=== PATIENT | female | born 1995 | race Caucasian/White ===

== ENCOUNTER 2018-03-02 15:04 | Emergency (ER) | payer OTHER, SELFPAY ==
[2018-03-02 15:05] VITALS: BP 135/66; PULSE 72; RESP 18; TEMP 36.8; O2SAT 100; BMI 20.7
--- NOTE | 2018-03-02 15:16 | ED.VISSUMM ---
- ER Visit Summary Date of Service: 03/02/18 Chief Complaint: Epigastric abdominal pain History of Present Illness: The patient is a 22 F no senior past medical 3 or prior abdominal surgeries. States this morning after eating breakfast which was cereal she started having epigastric abdominal pain and nausea vomiting. Mild loose stools. No melena. No hematemesis. No fever. No abdominal trauma. She has been intermittent throughout the day. Primarily when she tries to eat something. Denies any back pain. Last menstrual period approximately 2 weeks ago. Denies any dysuria. Physical Examination: Appearing young female. Vital signs are stable afebrile. H EENT exam is unremarkable. Moist mucous membranes. Neck nontender no lymphadenopathy. Lungs clear to auscultation bilaterally. Heart regular rhythm no murmur. Abdomen is soft nondistended normal bowel sounds no peritoneal signs. Mild epigastric tenderness. No rebound, guarding or rigidity. Right upper and right lower quadrants are nontender. No Vanegas sign or McBurney's point tenderness. No hernias or masses. No distention. Normal bowel sounds. Moving all 4 extremities. Back exam nontender. Neurologically awake and alert without focal motor deficits. Test Results: She will undergo an abdominal pain workup. BC normal with a white count of 10. Normal H&H. BMP normal. Normal creatinine and gap. Liver enzymes normal. Lipase normal at 115. Serum printed test negative. Emergency Department Course and Treatment: It with a GI cocktail and Pepcid. Treatment Plan: Evans exam the patient is doing well at 1608. Her abdomen is benign. Again no right upper or right lower quadrant pain. No peritoneal signs. She is resting comfortably. She was given p.o. Pepcid and GI cocktail. She will be discharged to home with a Zofran prescription as needed. She knows return if she has increasing pain or moves to the right lower quadrant. Clinically she does not have an appendicitis. She will be referred to PCP for follow-up. Disposition: discharge Impression: Acute abdominal pain certain etiology. Nausea and vomiting This note was generated with [employer] dictation software. It may contain incorrect words, spelling, and punctuation that were not noted in review of the chart prior to signing ED Disposition - Plan for ED Patient: Chief Complaint: Abd Pain Referrals: Sidney Curiel MD [Primary Care Provider] -
[2018-03-02] MEDS: Famotidine 20 MG Tablet 40 MG PO (15:19)
[2018-03-02 15:31] LABS: Absolute Lymphocyte Count 1.44 X10^3/ul (0.83-4.51); Absolute Neutrophil Count 8.1 X10^3/uL (2.0-7.7); Basophil# 0.02 X10^3/uL; Basophil% 0.2 % (0-1); Eosinophil# 0.01 X10^3/uL; Eosinophils% 0.1 % (0-5); Hematocrit 43.1 % (37-47); Hemoglobin 14.9 g/dl (12.0-15.0); Lymphocyte # 1.44 X10^3/ul (4.0); Lymphocyte % 14.4 % (19-41); Mean Corp Hgb Conc 34.6 g/gl (32-36); Mean Corpuscular Hgb 29.9 pg (27.0-32.0); Mean Corpuscular Volume 86.5 fL (81-99); Mean Platelet Vol. 9.1 fl (6.2-12.0); Monocyte# 0.44 X10^3/uL; Monocyte% 4.4 % (0-10); Neutrophil # 8.08 X10^3/uL (2.7-7.7); Neutrophil % 80.7 % (47-70); Platelet Count 329 K/mm3 (150-450); RBC Distribution Width CV 12.4 % (11.6-14.6); RBC Distribution Width SD 39.1 fl (35.1-43.9); Red Blood Count 4.98 M/mm3 (4.2-5.4)
[2018-03-02 15:34] LABS: POSITIVE COUNT NO; POSITIVE DIFFERENTIAL NO; POSITIVE MORPHOLOGY NO
[2018-03-02 15:47] LABS: AST(SGOT) 18 U/L (15-37); Alanine Aminotransfer ALT/SGPT 17 U/L (13-56); Albumin, Serum 3.9 g/dL (3.2-5.0); Alkaline Phosphatase 52 U/L (45-117); Anion Gap 9 (5-15); BUN 13 mg/dL (7-18); BUN/Creat Ratio 14.3 RATIO (10-20); Bilirubin, Direct 0.14 mg/dL (0.00-0.30); Calcium,Total 9.1 mg/dL (8.5-10.1); Chloride 105 mmol/L (98-107); Creatinine, Serum 0.91 mg/dL (0.55-1.02); EST Glomerular Filtration Rate 83 mL/min (>60); Est Glom Filt Rate - Afr Amer 101 mL/min (>60); Estimated Creatinine Clearance 90.92 ml/min; Globulin 3.9 g/dL (2.2-4.2); Glucose 100 mg/dL (74-106); Lipase 115 U/L (73-393); Potassium 3.8 mmol/L (3.5-5.1); Protein, Total 7.8 g/dL (6.4-8.2); Sodium Level 138 mmol/L (136-145)
[2018-03-02 15:52] LABS: Pregnancy, Serum, hCG Quali. NEGATIVE Negative (0-9 Nonpreg)
--- NOTE | 2018-03-02 16:14 | DCINST.ED_ITS ---
ED Disposition - Plan for ED Patient: Disposition: Home or Assisted Living Chief Complaint: Abd Pain Instructions: ED Abdominal Pain Unkn Cause Prescriptions: Ondansetron [Zofran Odt] 4 mg PO Q4H PRN PRN #7 tab.rapdis PRN Reason: Nausea Referrals: Sidney Curiel MD [Primary Care Provider] - 3-5 Days if not improving Additional Instructions: [employer] diet and increase slowly as tolerated. Return to ER if feeling worse, increasing pain, vomiting blood or black or bloody stools or pain moves the right lower quadrant. Zofran as needed for nausea. They will try [id number] Pepcid or Prilosec for your stomach.
== END 2018-03-02 16:21 | disposition home or self-care (01) ==
PROVIDERS: Emergency Provider Emergency Medicine; Family Provider Family Medicine; PCP Family Medicine
DX: R10.13 Epigastric pain (principal); R11.2 Nausea with vomiting, unspecified; Z79.899 Other long term (current) drug therapy
CPT/HCPCS: 80048; 80076; 83690; 84703; 85025; 99284; A4216

== ENCOUNTER → 2018-03-06 11:29 | Outpatient (CLI) | payer OTHER, SELFPAY ==
[2018-03-06 14:29] LABS: Rubella IgG 49.9 IU/mL
[2018-03-08 10:27] LABS: Hep B Surface Antibodies Non Reactive (.); Mumps Antibody,IgG 43.1 AU/mL (Immune >10.9); Rubeola IgG Ab > 300.0 AU/mL (Immune >29.9); V-Zoster Virus Acute IgM < 0.91 index (0.00-0.90)
== END ==
PROVIDERS: Family Provider Family Medicine; PCP Family Medicine; Visit Provider Nurse Practitioner Adult Health
DX: Z20.9 Contact with and (suspected) exposure to unspecified communicable disease (principal)
CPT/HCPCS: 36415; 86706; 86735; 86762; 86765; 86787

== ENCOUNTER → 2018-05-08 16:39 | Outpatient (CLI) | payer OTHER, SELFPAY ==
[2018-05-11 15:56] LABS: V-Zoster IgG (Immunity) > 4000 index (Immune >165)
== END ==
PROVIDERS: Family Provider Family Medicine; PCP Family Medicine; Visit Provider Family Medicine
DX: Z09 Encounter for follow-up examination after completed treatment for conditions other than malignant neoplasm (principal)
CPT/HCPCS: 36415; 86787

== ENCOUNTER → 2018-09-22 11:06 | Outpatient (CLI) | payer OTHER, SELFPAY ==
--- NOTE | 2018-09-22 11:11 | RAD_ITS ---
STUDY: X-RAY - LEFT HAND REASON FOR EXAM: Female, 22 years old. History of a distal fifth metacarpal fracture. TECHNIQUE: History view(s) of the hand. COMPARISON: Comparison is made with prior study dated April 27, 2012. FINDINGS: Normal radiocarpal articulation. Normal distal radioulnar joint. Normal visualized carpal bones. Normal carpal articulations Normal carpometacarpal articulation of the thumb. Normal second through fifth carpometacarpal joints. Normal metacarpi. Normal metacarpophalangeal joint of the thumb. Normal interphalangeal joint of the thumb. Normal proximal and distal phalanges of the thumb. Normal metacarpophalangeal joints of the second through fifth fingers. Normal proximal and distal interphalangeal joints of the second through fifth fingers. Normal phalanges of the second through fifth fingers. The soft tissue structures are unremarkable. RAD/Hand Min 3 Views IMPRESSION: Normal x-ray examination of the hand. Electronically Signed: Mike Anthony MD at 11:33 EST Tel [phone], Service support ,
== END ==
LOC: MTLAB 11:08 → MTRAD 11:09
PROVIDERS: Family Provider Family Medicine; PCP Family Medicine; Referring Provider Family Medicine; Visit Provider Family Medicine
DX: S62.308A Unspecified fracture of other metacarpal bone, initial encounter for closed fracture (principal)
CPT/HCPCS: 73130

== ENCOUNTER → 2018-10-12 14:52 | Outpatient (CLI) | payer OTHER, SELFPAY ==
[2018-10-15 13:37] LABS: Hep B Surface Antibodies Reactive (.)
== END ==
PROVIDERS: Family Provider Family Medicine; PCP Family Medicine; Referring Provider Family Medicine; Visit Provider Family Medicine
DX: Z78.9 Other specified health status (principal)
CPT/HCPCS: 36415; 86706